=== PATIENT | female | born 1995 | race Caucasian/White ===

== ENCOUNTER 2017-03-17 08:19 | Emergency (ER) | payer BC, MEDICAID ==
[~2017-03-17] VITALS: Ht 152.4 cm; Wt 49.4 kg
[2017-03-17 08:20] VITALS: Ht 152.4 cm; Wt 49.4 kg
[2017-03-17] MEDS ORDERED: FLUORESCEIN SODIUM 1 MG/STRIP OP ONE (08:30)
[2017-03-17] MEDS ORDERED: BIRTH CONTROL PO (08:54)
--- NOTE | 2017-03-17 09:13 | ERPDOC ---
Departure Disposition Decision Date: March 17, 2017 Disposition Decision Time: 10:15 Disposition: 01 DISCHARGED HOME, SELF-CARE Impression Impression Impression: Primary Impression: Eyelid edema Laterality: right Qualified Codes: H02.843 - Edema of right eye, unspecified eyelid Severity: Moderate Condition: Improved Seen By: Physician only Referrals: NATALIE WELLINGTON MD (Family) NIRAV BARGER MD 1 Day Patient Instructions: Eye Pain (ED) Problems/Meds/Labs Reviewed?: Yes Medications reviewed and manag: Yes Follow up care ordered?: Yes Mental Status: Alert, Oriented HPI - General Medical General Chief Complaint: Eye Problems Stated Complaint: R EYE SWELLING Time Seen by Provider: 08:19 Source: patient Exam Limitations: no limitations HPI - General Medical Initial Comments 21-year-old female presents to the emergency department with a chief complaint of right eye swelling. Patient noted onset of symptoms one day ago while at home. She denies any recent illness. She denies any recent trauma or injury. Patient notes a generalized dull discomfort associated with the swelling. She notes that her vision does feel slightly blurry. She does not note any radiation of symptoms. She does not note any exacerbating or remitting factors. No other complaints or associated symptoms. Patient's vaccines are current. She was at home when her symptoms began. Symptoms have been persistent in a gradual manner since onset. Patient does not wear corrective lenses. She denies foreign body sensation. Vaccines including tetanus are current. Occurred At: home Onset: Gradual Allergies: Coded Allergies: No Known Allergies (Unverified , 07/26/15) Past History Patient Surgical History None Past Medical History Neurological: migraines Surgical History Denies Surgeries Family History Family History: Negative Vaccines Hx Influenza Vaccination: No ("I HAVE NO IDEA") Hx Pneumococcal Vaccination: No Hx Tetanus Diptheria: No Hx Tetanus, Diptheria, Pertuss: Yes (05/18/2014) Social History Smoking Status: Never smoker Substance Use Type: does not use Alcohol Intake: none Sexuality: male partner Review of Systems Constitutional Constitutional: DENIES: chills, fever Eyes General: DENIES: erythema, exudate Lids/Accessories: erythema, swelling Vision: blurring, DENIES: acuity ENMT Ears: DENIES: drainage, pain Hearing: DENIES: hearing loss Balance: DENIES: ataxia, falling to one side Sinuses: DENIES: congestion, pain Nose: DENIES: nosebleeds, pain Mouth/Throat: DENIES: painful swallowing, sore throat Teeth: DENIES: pain Jaw: DENIES: pain Cardiovascular Cardiac: DENIES: chest pain, dyspnea on exertion Rhythm/Rate: DENIES: irregular beat, palpitations Vascular: DENIES: pedal edema, unilateral swelling Pulmonary Respiratory: DENIES: cough, dyspnea, pleuritic chest pain, sputum GI Upper Abdomen: DENIES: nausea, pain, vomiting Lower Abdomen: DENIES: diarrhea, pain General: DENIES: burning, dysuria, frequency, urgency Musculoskeletal General: DENIES: joint pain, tenderness Integumentary Skin: DENIES: itching, rash Neurological General: DENIES: change in strength, headache, numbness, weakness Psychiatric Psychiatric: DENIES: emotional instability, suicidal ideation/attempt Endocrine Endocrine: DENIES: polydipsia, polyphagia Hematologic/Lymphatic Hematologic/Lymphatic: DENIES: frequent nosebleeds, lymphadenopathy Allergic/Immunological Allergic/Immunoligical: DENIES: allergic reactions, hives Physical Exam General General Nourishment: well nourished, well developed, appears stated age, no acute distress, adult General Body Habitus: well groomed Vitals and Pain First Documented Vital Signs Date Time Temp Pulse Resp B/P Pulse Ox O2 Delivery O2 Flow Rate FiO2 03/17/17 08:20 98.2 86 20 115/64 98 Room Air Weight: Kilograms: 49.400 Height (feet): 5 Height (inches): 0 Triage Pain Scale: RN VS reviewed by Provider: Yes Normal Exams: Head: Normocephalic w/o trauma Eyes: Pupils are PERRLA w/ EOMI, No scleral icterus, irritation, or foreign bodies noted Fundi: Disks flat and sharp, No hemorrhages, or AV nicking noted ENMT: No facial trauma, nasal exudates, pharyngeal erythema, or exudates are noted Dental: No fractured, loose, or missing teeth noted Neck: Full range of motion, without adenopathy, JVD, bruits or thyromegaly Chest/Resp: Clear all palomares, with good airflow, and symmetry bilaterally CV: Regular rate and rhythm, without murmur or gallop, Pulses 2+ all extremities, capillary refill, <2 seconds all ext., no pedal edema noted Abdomen: Bowel sounds positive, soft, non-tender, non-distended, no hepatosplenomegaly, masses or bruits noted Lymphatic: No lymphadenopathy, or lymphedema noted Musculoskeletal: No tenderness, or deformity noted, good range of motion, all extremities Integumentary: No rashes, hives, or bruising noted, hair and nails, without abnormality Neurologic: Patient is alert, and oriented, cranial nerves, motor/sensory/ cerebellar, exams w/o gross deficits, to observation Psychiatric: Patient exhibits, appropriate attention, emotion and affect Eyes (brief) Comments R eye - mild edema without erythema involving the upper lid. Lashes are normal. Pupil is round equal and reactive to light. Extraocular motion is intact. No conjunctivitis. Intraocular pressure: 10. Unremarkable slit lamp examination. Negative fluorescein staining. No hyphema. No proptosis. No drainage. Visual Acuity: L: 20/20. R: 20/50. Bilateral: 20/30. Tender to palpation along the upper lid at the lateral border. L eye: Unremarkable exam. Differential Diagnoses Considering: Other (Orbital cellulitis / preseptal cellulitis / foreign body / conjunctivitis/chalazion) Progress Results/Orders Orders Procedure Category Date Status Time LAB 03/17/17 Complete Qualitative, Urine 08:41 Ct Orbits W/O Contrast CT 03/17/17 Resulted 08:42 Lab Results Laboratory Tests Test 03/17/17 08:47 Urine Test Negative Progress Progress She is discussed with Dr. Barger of ophthalmology. Findings and imaging are reviewed in detail and questions answered. Dr. Barger's recommendation is that he will see her with close follow-up tomorrow morning in the office. Treat the patient with warm soaks 4-6 times per day. No antibiotic coverage at this time. Imaging and findings are discussed in detail with the patient who is in agreement with the current plan of management. Recommendations are discussed in detail patient who verbalizes agreement and understanding. Patient is discharged home in improved condition. Patient is to follow up as instructed. She is to return to the emergency Department if her condition worsens or changes in any manner. Patient is in agreement with the current plan of management. ESSIE AVILA DO March 17, 2017 09:12
--- NOTE | 2017-03-17 09:22 | NUR ---
IMAGING PT TO IMAGING AT THIS TIME.
--- NOTE | 2017-03-17 09:28 | NUR ---
IMAGING PT RETURN TO ROOM FROM IMAGING AT THIS TIME. NO SIGN OF DISTRESS.
--- NOTE | 2017-03-17 09:59 | DI ---
Indication: ITS.REASON: R eye swelling CT ORBITS W/O CONTRAST: Comparison: 03/03/2015 CT head Technique: Patient is scanned through the orbital region without intravenous contrast with dose reduction imaging technology and reformatted sagittal and coronal image planes. Findings: Patient demonstrates some slight soft tissue swelling and indistinctness along the preseptal region along the right lateral orbital region. The actual globe and intraocular muscles seemed well-defined. No adjacent sinus disease is appreciated. No acute bony findings are noted. Impression: 1. Patient shows right lateral orbital soft tissue swelling without focal abscess or inflammation. The globe and intraocular muscles are unremarkable. 2. Left orbit is unremarkable. 3. No significant acute sinusitis or bony abnormality appreciated. 4. Findings were directly called ordering ER clinician. .
[2017-03-17 10:41] VITALS: BP 104/54; PULSE 66; RESP 20; TEMP 98.2; O2SAT 100
--- NOTE | 2017-03-17 10:41 | NUR ---
DEPART PT GIVEN DI FOR EYE PAIN AND F/U. VERBALIZES UNDERSTANDING OF DI AND F/U. QUESTIONS ASKED/ANSWERED - DENIES FURTHER QUESTIONS/NEEDS AT THIS TIMER. PERSONAL BELONGINGS GATHERED. PT AMBULATED/ESCORTED TO ED EXIT. GAIT STABLE, NO SIGN DISTRESS.
== END 2017-03-17 10:41 | disposition home or self-care (01) ==
LOC: ED 08:19
DX: H02.841 Edema of right upper eyelid (principal); H53.8 Other visual disturbances
CPT/HCPCS: 81025